=== PATIENT | female | born 1960 | race Caucasian/White ===

== ENCOUNTER 2017-01-11 05:55 | Day surgery (SDC) | payer BC, MEDICARE ==
--- NOTE | ~2017-01-11 | EGD ---
EGD REPORT [facility] [address] [place]. [address] NAME: JEFF ALMANZA : 58 STATUS : REG [facility] [place] PAT#: [id number] AGE: 56 ADM/REG DATE : 01/11/17 MR#: [id number] REPORT SERV DATE: 01/11/17 DICTATED BY: DEEPTI MEDINA DATE: 01/11/17 REPORT STATUS : Draft TRANSCRIBED BY: [facility] DATE: 01/11/17 Endoscopy Center Patient Name: Jeff Almanza Date of : 1960 Attending MD: DEEPTI MEDINA MD Procedure Date No Time: 01/11/2017 Procedure: Colonoscopy Indications: Iron deficiency anemia heme neg; h/o colon adenomas. Patient Profile: Informed consent was obtained from the patient by me prior to the procedure. Risks, benefits, and alternatives were discussed including the risk of bleeding, perforation, infection, reaction to medicine, missed lesion, and cardiopulmonary complications. Referring MD: LUPILLO DELGADO Medicines: Monitored Anesthesia Care Complications: No immediate complications. Procedure: Pre-Anesthesia Assessment: - ASA Grade Assessment: III - A patient with severe systemic disease. After I obtained informed consent, the scope was passed under direct vision. Throughout the procedure, the patient's blood pressure, pulse, and oxygen saturations were monitored continuously. The PCF H190L [id number] was introduced through the anus and advanced to the cecum, identified by appendiceal orifice and ileocecal valve. The colonoscope was slowly withdrawn with careful examination all mucosal surfaces including specific attention around flexures and tip deflection behind folds; retroflexion performed in rectum. The colonoscopy was performed without difficulty. The patient tolerated the procedure well. The quality of the bowel preparation was adequate. The ileocecal valve, appendiceal orifice, terminal ileum and rectum were photographed. Findings: The terminal ileum appeared normal. A sessile polyp was found in the rectum. The polyp was 5 mm in size. The polyp was removed with a cold biopsy forceps. Resection and retrieval were complete. Impression: - The examined portion of the ileum was normal. - One 5 mm polyp in the rectum. Resected and retrieved. Recommendation: - Patient has a contact number available for emergencies. The signs and symptoms of potential delayed EGD REPORT [address] [place]. [address] NAME: JEFF ALMANZA : [birth year] STATUS : REG [facility]#: [id number] AGE: 56 ADM/REG DATE : 01/11/17 MR#: [id number] REPORT SERV DATE: 01/11/17 DICTATED BY: DEEPTI MEDINA DATE: 01/11/17 REPORT STATUS : Draft TRANSCRIBED BY: [facility] DATE: 01/11/17 complications were discussed with the patient. Return to normal activities tomorrow. Written discharge instructions were provided to the patient. - Regular diet. - Continue present medications. - Await pathology results. - Repeat colonoscopy for surveillance based on pathology results. Procedure Code(s): --- Professional --- 21591, Colonoscopy, flexible, proximal to splenic flexure; with biopsy, single or multiple Diagnosis Code(s): --- Professional --- K62.1, Rectal polyp D50.9, Iron deficiency anemia, unspecified CPT copyright 2013 [employer]. All rights reserved. The codes documented in this report are preliminary and upon psych nurse review may be revised to meet current compliance requirements. DEEPTI MEDINA MD 01/11/2017 7:46 AM This report has been signed electronically. Number of Addenda: 0 Note Initiated On: 01/11/2017 7:21 AM Scope Withdrawal Time 0 hours 11 minutes 31 seconds [address] [place] [address]
--- NOTE | ~2017-01-11 | EGD ---
EGD REPORT [facility] [address] [place]. [address] NAME: JEFF ALMANZA : 58 STATUS : REG [facility] [place] PAT#: [id number] AGE: 56 ADM/REG DATE : 01/11/17 MR#: [id number] REPORT SERV DATE: 01/11/17 DICTATED BY: DEEPTI MEDINA DATE: 01/11/17 REPORT STATUS : Draft TRANSCRIBED BY: [facility] DATE: 01/11/17 Endoscopy Center Patient Name: Jeff Almanza Date of : 1960 Attending MD: DEEPTI MEDINA MD Procedure Date No Time: 01/11/2017 Procedure: Upper GI endoscopy Indications: Iron deficiency anemia, Dysphagia, Heartburn; Prilosec 20mg bid. Patient Profile: Informed consent was obtained from the patient by me prior to the procedure. Risks, benefits, and alternatives were discussed including the risk of bleeding, perforation, infection, reaction to medicine, missed lesion, and cardiopulmonary complications. Referring MD: LUPILLO DELGADO Medicines: Monitored Anesthesia Care Complications: No immediate complications. Procedure: Pre-Anesthesia Assessment: - ASA Grade Assessment: III - A patient with severe systemic disease. After obtaining informed consent, the endoscope was passed under direct vision. Throughout the procedure, the patient's blood pressure, pulse, and oxygen saturations were monitored continuously. The GIF H190 [id number] was introduced through the mouth, and advanced to the third part of duodenum. The endoscope was withdrawn with careful examination all mucosal surfaces including retroflexion stomach. The upper GI endoscopy was accomplished without difficulty. The patient tolerated the procedure well. Findings: The 3rd part of the duodenum was normal. The first part of the duodenum and 2nd part of the duodenum were normal. Biopsies were taken with a cold forceps for histology. The cardia, gastric antrum and gastric fundus (on retroflexion) were normal. Patchy mildly erythematous mucosa was found in the gastric body. Biopsies were taken with a cold forceps for histology. A single 5 mm sessile polyp was found in the gastric body. The polyp was removed with a cold biopsy forceps. Resection and retrieval were complete. The esophagus and gastroesophageal junction were examined with white light. There was no visual evidence of Marie's esophagus. The examined esophagus was normal. Biopsies were taken with a cold EGD REPORT [address] [address] NAME: JEFF ALMANZA : [birth year] STATUS : REG [facility]#: [id number] AGE: 56 ADM/REG DATE : 01/11/17 MR#: [id number] REPORT SERV DATE: 01/11/17 DICTATED BY: DEEPTI MEDINA DATE: 01/11/17 REPORT STATUS : Draft TRANSCRIBED BY: [employer] [facility] DATE: 01/11/17 forceps for histology from mid and upper. 48F Savary dilation performed over guidewire held in antrum; mild resistance to dilation; endoscopic visualization afterwards = superficial mucosal break near UES. Impression: - Normal 3rd part of the duodenum. - Normal first part of the duodenum and 2nd part of the duodenum. Biopsied. - Normal cardia, antrum and gastric fundus. - Erythematous mucosa in the gastric body. Biopsied. - A single gastric polyp. Resected and retrieved. - There is no endoscopic evidence of Marie's esophagus. - Normal esophagus. Biopsied. Dilated. Recommendation: - Patient has a contact number available for emergencies. The signs and symptoms of potential delayed complications were discussed with the patient. Return to normal activities tomorrow. Written discharge instructions were provided to the patient. - Regular diet. - Continue present medications. - Await pathology results. - Taper Omeprazole to once daily as tolerated. Procedure Code(s): --- Professional --- 83684, Esophagogastroduodenoscopy, flexible, transoral; with insertion of guide wire followed by passage of dilator(s) through esophagus over guide wire 54790, Esophagogastroduodenoscopy, flexible, transoral; with biopsy, single or multiple Diagnosis Code(s): --- Professional --- K31.9, Disease of stomach and duodenum, unspecified K31.7, Polyp of stomach and duodenum D50.9, Iron deficiency anemia, unspecified R13.10, Dysphagia, unspecified R12, Heartburn CPT copyright 2013 [employer]. All rights reserved. The codes documented in this report are preliminary and upon appian developer review may be revised to meet current compliance requirements. DEEPTI MEDINA MD 01/11/2017 7:25 AM This report has been signed electronically. EGD REPORT [address] [address] NAME: JEFF ALMANZA : 58 STATUS : REG [facility] [place] PAT#: [id number] AGE: 56 ADM/REG DATE : 01/11/17 MR#: [id number] REPORT SERV DATE: 01/11/17 DICTATED BY: DEEPTI MEDINA DATE: 01/11/17 REPORT STATUS : Draft TRANSCRIBED BY: [employer] [facility] DATE: 01/11/17 Number of Addenda: 0 Note Initiated On: 01/11/2017 7:05 AM Scope Withdrawal Time 0 hours 0 minutes 0 seconds
--- NOTE | ~2017-01-11 | EGD ---
EGD REPORT [facility] [address] [place]. [address] NAME: JEFF ALMANZA : 58 STATUS : REG [facility] [place] PAT#: [id number] AGE: 56 ADM/REG DATE : 01/11/17 MR#: [id number] REPORT SERV DATE: 01/11/17 DICTATED BY: DEEPTI MEDINA DATE: 01/11/17 REPORT STATUS : Draft TRANSCRIBED BY: [facility] DATE: 01/11/17 Endoscopy Center Patient Name: Jeff Almanza Date of : 1960 Attending MD: DEEPTI MEDINA MD Procedure Date No Time: 01/11/2017 Procedure: Colonoscopy Indications: Iron deficiency anemia heme neg; h/o colon adenomas. Patient Profile: Informed consent was obtained from the patient by me prior to the procedure. Risks, benefits, and alternatives were discussed including the risk of bleeding, perforation, infection, reaction to medicine, missed lesion, and cardiopulmonary complications. Referring MD: LUPILLO DELGADO Medicines: Monitored Anesthesia Care Complications: No immediate complications. Procedure: Pre-Anesthesia Assessment: - ASA Grade Assessment: III - A patient with severe systemic disease. After I obtained informed consent, the scope was passed under direct vision. Throughout the procedure, the patient's blood pressure, pulse, and oxygen saturations were monitored continuously. The PCF H190L [id number] was introduced through the anus and advanced to the cecum, identified by appendiceal orifice and ileocecal valve. The colonoscope was slowly withdrawn with careful examination all mucosal surfaces including specific attention around flexures and tip deflection behind folds; retroflexion performed in rectum.The colonoscopy was performed without difficulty. The patient tolerated the procedure well. The quality of the bowel preparation was adequate. The ileocecal valve, appendiceal orifice, terminal ileum and rectum were photographed. Findings: The terminal ileum appeared normal. A sessile polyp was found in the rectum. The polyp was 5 mm in size. The polyp was removed with a cold biopsy forceps. Resection and retrieval were complete. Impression: - The examined portion of the ileum was normal. - One 5 mm polyp in the rectum. Resected and retrieved. Recommendation: - Patient has a contact number available for emergencies. The signs and symptoms of potential delayed EGD REPORT [address] [place]. [address] NAME: JEFF ALMANZA : 58 STATUS : REG [facility]#: [id number] AGE: 56 ADM/REG DATE : 01/11/17 MR#: [id number] REPORT SERV DATE: 01/11/17 DICTATED BY: DEEPTI MEDINA DATE: 01/11/17 REPORT STATUS : Draft TRANSCRIBED BY: [email or web address] DATE: 01/11/17 complications were discussed with the patient. Return to normal activities tomorrow. Written discharge instructions were provided to the patient. - Regular diet. - Continue present medications. - Await pathology results. - Repeat colonoscopy for surveillance based on pathology results. Procedure Code(s): --- Professional --- 59089, Colonoscopy, flexible, proximal to splenic flexure; with biopsy, single or multiple Diagnosis Code(s): --- Professional --- K62.1, Rectal polyp D50.9, Iron deficiency anemia, unspecified CPT copyright 2013 [employer]. All rights reserved. The codes documented in this report are preliminary and upon radiation oncology manager review may be revised to meet current compliance requirements. DEEPTI MEDINA MD 01/11/2017 7:46 AM This report has been signed electronically. Number of Addenda: 0 Note Initiated On: 01/11/2017 7:21 AM Scope Withdrawal Time 0 hours 11 minutes 31 seconds [address] [place] [address]
--- NOTE | ~2017-01-11 | OP ---
Record Of Operation [facility] [address] [place] [address] NAME: JEFF HILL : 58 STATUS : REG [facility] [place] PAT#: [id number] AGE: 56 ADM/REG DATE : 01/11/17 MR#: [id number] REPORT SERV DATE: 01/11/17 DICTATED BY: GUILHERME TURNER DATE: 01/11/17 REPORT STATUS : Draft TRANSCRIBED BY: [employer] DATE: 01/11/17 DATE OF PROCEDURE: PROCEDURE: Colonoscopy. INDICATIONS: Abdominal pain after colonoscopy earlier today, suspect air retention. CONSENT: Informed consent was obtained from the patient and her by me prior to the procedure. Risks, benefits, and alternatives were described including, but not limited to, bleeding, perforation, infection, reaction to medicine, and cardiopulmonary complications. MEDICATIONS: As per Anesthesia. DESCRIPTION OF PROCEDURE: After the patient was adequately sedated and placed in the left lateral decubitus position, the pediatric colonoscope was inserted into the rectum and advanced to the cecum without difficulty. Carbon dioxide was used and minimal air insufflation was also utilized. The endoscope proceeded to the cecum very easily. At that point, we did suction and apply counterpressure to the abdomen to get the air to come down. There was a mild amount of distention in the transverse and ascending colon. This was suctioned completely. The endoscope was then withdrawn and the procedure terminated. FINDINGS: Air retention within the colon, removed. CO2 utilized. At the end of the procedure, the belly was very soft and benign. CC/CHONL Guilherme Turner M.D. / [id number] CC: Jean Franz M.D.
[~2017-01-11 05:55] MED LIST: ACTOS15 PO; AMRIX30 MG PO; DURA50 TOP; ESTROPIPATE1.5 MG PO; FIBERCON PO; FIORICET PO; FLEX PO; GLUCOPHAGE1000 MG PO; GLUCPH PO; HYOMAX-SL0.125 MG PO; INDE120LA PO; JANUVIA100 MG PO; LYRICA75 PO; MULTIPLE VIT PO; OXYCOD PO; OXYCON40 PO; PLAQ200B PO; PR25 PO; PREDNISONE2.5 MG PO; PRILOSEC OTC20 MG PO; ROXICODONE15 MG PO; TRAZ50 PO; URSO250 PO; VALTREX5 PO; WELCHOL 625 MG625 MG OR; WELCHOL625 MG OR; ZYP5 PO
== END 2017-01-11 23:59 | disposition home or self-care (01) ==
LOC: DMU 05:55
PROVIDERS: Internal Medicine Gastroenterology
PROC: 0DB98ZX Excision of Duodenum, Via Natural or Artificial Opening Endoscopic, Diagnostic (ICD-10-PCS; 2017-01-11)
PROC: 0DB18ZX Excision of Upper Esophagus, Via Natural or Artificial Opening Endoscopic, Diagnostic (ICD-10-PCS; 2017-01-11)
PROC: 0DB28ZX Excision of Middle Esophagus, Via Natural or Artificial Opening Endoscopic, Diagnostic (ICD-10-PCS; 2017-01-11)
PROC: 0DB68ZX Excision of Stomach, Via Natural or Artificial Opening Endoscopic, Diagnostic (ICD-10-PCS; 2017-01-11)
PROC: 0D748ZZ Dilation of Esophagogastric Junction, Via Natural or Artificial Opening Endoscopic (ICD-10-PCS; 2017-01-11)
PROC: 0DB68ZZ Excision of Stomach, Via Natural or Artificial Opening Endoscopic (ICD-10-PCS; 2017-01-11)
PROC: 0DBP8ZZ Excision of Rectum, Via Natural or Artificial Opening Endoscopic (ICD-10-PCS; principal; 2017-01-11 07:00)
PROC: 0D7L8ZZ Dilation of Transverse Colon, Via Natural or Artificial Opening Endoscopic (ICD-10-PCS; 2017-01-11 07:00)
PROC: 0D7K8ZZ Dilation of Ascending Colon, Via Natural or Artificial Opening Endoscopic (ICD-10-PCS; 2017-01-11 07:00)
DX: K62.89 Other specified diseases of anus and rectum (principal); K62.1 Rectal polyp; K63.89 Other specified diseases of intestine; K31.7 Polyp of stomach and duodenum; K31.9 Disease of stomach and duodenum, unspecified; D50.9 Iron deficiency anemia, unspecified; R13.10 Dysphagia, unspecified; R12 Heartburn; Z86.010 Personal history of colon polyps; I10 Essential (primary) hypertension; E11.9 Type 2 diabetes mellitus without complications; G89.29 Other chronic pain; M33.90 Dermatopolymyositis, unspecified, organ involvement unspecified; R11.0 Nausea; Z88.6 Allergy status to analgesic agent; Z88.8 Allergy status to other drugs, medicaments and biological substances; Z79.818 Long term (current) use of other agents affecting estrogen receptors and estrogen levels; Z79.84 Long term (current) use of oral hypoglycemic drugs; Z79.52 Long term (current) use of systemic steroids; Z79.899 Other long term (current) drug therapy
CPT/HCPCS: 74176; 82962; 88305; J3010